=== PATIENT | female | born 1980 | race Caucasian/White ===

== ENCOUNTER 2021-07-14 18:59 | Emergency (ER) | payer OTHER ==
[2021-07-14 21:06] LABS: HEMOGLOBIN 12.9 gm/dl (12.3-15.3); RED BLOOD COUNT 5.5 M/UL (4.00-5.10); WHITE BLOOD COUNT 12.5 K/UL (4.5-11.0)
[2021-07-14 21:36] LABS: BUN/CREATININE RATIO 33 (0-10)
[2021-07-14] MEDS ORDERED: PHENERGAN 12.12.5 MG PR (21:56)
== END 2021-07-14 22:30 | disposition home or self-care (01) ==
LOC: ER1 18:59
PROVIDERS: Family Medicine
DX: E11.65 Type 2 diabetes mellitus with hyperglycemia (principal); F11.23 Opioid dependence with withdrawal; E83.51 Hypocalcemia; F17.200 Nicotine dependence, unspecified, uncomplicated; R11.2 Nausea with vomiting, unspecified
CPT/HCPCS: 80053; 82962; 85025; 93005; 96372; 99284; J2550

== ENCOUNTER → 2021-07-22 | Outpatient (CLI) | payer OTHER ==
[~2021-07-22] MED LIST: PHENERGAN 12.12.5 MG PR
[2021-07-22 11:44] LABS: HEMOGLOBIN 11.2 gm/dl (12.3-15.3); RED BLOOD COUNT 4.64 M/UL (4.00-5.10); WHITE BLOOD COUNT 5.7 K/UL (4.5-11.0)
[2021-07-22 12:01] LABS: BUN/CREATININE RATIO 29 (0-10)
== END ==
LOC: LAB 11:04
PROVIDERS: Nurse Practitioner Psychiatric/Mental Health
DX: Z01.812 Encounter for preprocedural laboratory examination (principal)
CPT/HCPCS: 36415; 80053; 83036; 83735; 85027

== ENCOUNTER 2021-08-05 09:18 | Emergency (ER) | payer OTHER ==
[2021-08-05 10:06] LABS: HEMOGLOBIN 10.9 gm/dl (12.3-15.3); RED BLOOD COUNT 4.46 M/UL (4.00-5.10)
[2021-08-05 10:36] LABS: BUN/CREATININE RATIO 26 (0-10)
[2021-08-05] MEDS ORDERED: IBUPROFEN800 MG PO (16:28)
== END 2021-08-05 16:36 | disposition home or self-care (01) ==
LOC: ER1 09:18
PROVIDERS: Emergency Medicine
DX: R09.1 Pleurisy (principal); E11.9 Type 2 diabetes mellitus without complications; F17.210 Nicotine dependence, cigarettes, uncomplicated; Z79.4 Long term (current) use of insulin; Z79.899 Other long term (current) drug therapy
CPT/HCPCS: 71046; 80053; 82550; 82553; 84484; 85025; 85379; 93005; 99284; Q9967